=== PATIENT | male | born 1965 | race Caucasian/White ===

== ENCOUNTER 2021-03-18 08:20 | Emergency (ER) | payer BC, SELFPAY ==
[2021-03-18 08:32] VITALS: BP 119/76; PULSE 57; RESP 16; TEMP 36.1; O2SAT 99
--- NOTE | 2021-03-18 08:47 | ED.GENADULT ---
HPI - General Adult General Chief complaint: Skin/Abscess/Foreign Body Stated complaint: rash Source: patient Mode of arrival: ambulatory Limitations: no limitations History of Present Illness HPI narrative: Patient is a 55-year-old male who presents to the [facility] via [facility] for an evaluation of a rash located on face and scalp that has been present for approximately 3 to 4 days he reports the rash to be erythematous, vesicular, and painful. No relief with Tylenol. Ice improves symptoms. Touching rash and combing hair increases pain. History of varicella in childhood. Related Data Home Medications Medication Instructions Recorded Confirmed apixaban [Eliquis] 5 mg PO BID 03/18/21 03/18/21 metoprolol succinate 25 mg PO BID 03/18/21 03/18/21 Allergies Allergy/AdvReac Type Severity Reaction Status Date / Time No Known Allergies Allergy Verified 07/05/17 10:13 Review of Systems Review of Systems: denies recent/new changes in soaps, perfumes, lotions, detergents, and shampoos. Denies working with chemicals. Denies new or changes in medications/foods. Pertinent negatives fever, chills, sweats, change in appetite, malaise, poor p.o. intake, recent weight loss, change in appetite, myalgias, lymphadenopathy, LOC, dizziness, burning sensation, petechiae, swelling, pruritus, streaking, warmth, lesions, easy bruising, lip/tongue/throat swelling, facial swelling, abdominal pain, nausea, vomiting, numbness, tingling, loss of sensation, cough, wheezing, chest pain, and heart palpitations/murmurs. PMFSH Past Medical History Medical History (Updated 03/18/21 @ 09:09 by KETAN Granados, ) Atrial fibrillation Social History Social History Gender identity (if verbalized by the patient): Male Comments I have reviewed and agree with the patient's past medical, surgical, social, and family hx as documented by the RN. There is no relevant family history pertinent to the presenting complaint. Exam Narrative: GENERAL: Well-appearing, well-nourished, and in no acute distress. HEAD: Normocephalic, atraumatic. No facial swelling appreciated. EYES: PERRLA and EOMI. No evidence of drainage. Left upper eyelid with mild swelling and erythema. ENT: Nares clear, no rhinorrhea or epistaxis.Mucous membranes moist and pink. Uvula is midline without erythema and swelling. No evidence of obstruction, petechial rash, cobblestoning, lesions, ulcers, erythema, swelling, exudates, peritonsillar abscess, tenting, or drooling. Breath odor and voice normal. NECK: Supple. No Lymphadenopathy or nuchal rigidity appreciated. CHEST: Bilateral lung house are clear to auscultation. No respiratory distress. No evidence of cough or pleuritic cp upon examination. HEART: Bradycardia with a rate of 57. Regular Rhythm. No murmur, gallop, or rub heard. EXTREMITIES: Normal range of motion. No edema. SKIN: Warm, dry. No evidence of cellulitis, abscess, streaking, induration, abrasions/lacerations, petechiae, hematoma, contusion, drainage, or bleeding. Mild vesicular rash noted to medial aspect of left brow, left forehead, and and left parietal area. Tender to palpation. NEURO: No focal deficits. Alert and oriented x3. SPECIAL OBSERVATIONS: Smiling. Laughing. Course Vital Signs Vital signs: Vital Signs Temperature 96.9 F L 03/18/21 08:32 Pulse Rate 57 L 03/18/21 08:32 Respiratory Rate 16 03/18/21 08:32 Blood Pressure 119/76 03/18/21 08:32 Pulse Oximetry 99 03/18/21 08:32 Temperature 96.9 F L 03/18/21 08:32 Pulse Rate 57 L 03/18/21 08:32 Respiratory Rate 16 03/18/21 08:32 Blood Pressure 119/76 03/18/21 08:32 Pulse Oximetry 99 03/18/21 08:32 Medical Decision Making Differential Diagnosis Differential Diagnosis: Contact/allergic dermatitis, atopic dermatitis, psoriasis, cellulitis, tinea infection, parasite infection, shingles Medical Records Med
== END 2021-03-18 09:23 | disposition home or self-care (01) ==
PROVIDERS: Emergency Provider Nurse Practitioner Family
DX: B02.9 Zoster without complications (principal); I48.91 Unspecified atrial fibrillation
CPT/HCPCS: 99213; G0463